=== PATIENT | male | born 1985 | race Caucasian/White ===

== ENCOUNTER 2020-08-06 13:13 | Emergency (ER) | payer OTHER, MEDICAID, SELFPAY ==
[2020-08-06 13:22] VITALS: BP 132/79; PULSE 94; RESP 18; TEMP 36.5; O2SAT 100; BMI 31.3
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
== END 2020-08-06 15:32 | disposition home or self-care (01) ==
PROVIDERS: Emergency Provider Emergency Medicine
DX: S39.012A Strain of muscle, fascia and tendon of lower back, initial encounter (principal); V43.52XA Car driver injured in collision with other type car in traffic accident, initial encounter; Y93.89 Activity, other specified; Y92.414 Local residential or business street as the place of occurrence of the external cause; Y99.9 Unspecified external cause status
CPT/HCPCS: 99283

== ENCOUNTER 2021-08-02 22:04 | Emergency (ER) | payer OTHER, MEDICAID, SELFPAY ==
--- NOTE | ~2021-08-02 | CT_ITS ---
EXAMINATION: NONCONTRAST HEAD CT NONCONTRAST MAXILLOFACIAL CT INDICATION INFORMATION: Head injury. COMPARISON: None. TECHNIQUE: Separate noncontrast CT examinations of the head and maxillofacial bones were performed. Coronal and sagittal images were created for each examination at the technologist workstation. This CT examination was performed using dose optimization techniques as appropriate, variously including the following: *Automated exposure control *Adjustment of mA and/or kV according to patient size (this includes techniques or standardized protocols for targeted exams where dose is matched to indication/reason for exam; i.e. extremities or head) *Use of iterative reconstruction technique DLP: 796 and 465 mGy-cm FINDINGS: Head: There is no evidence of acute intracranial hemorrhage or territorial infarction. No abnormal mass effect or midline shift is seen. Ornelas to white matter differentiation is well preserved. No extra-axial fluid collections are identified. No hydrocephalus. No significant volume loss. There is no abnormal attenuation within the brain parenchyma. No acute soft tissue abnormality. No calvarial fracture. The mastoid air cells are well aerated. Maxillofacial: No acute maxillofacial fractures are seen. The frontal, maxillary, ethmoid, and sphenoid sinuses are well aerated. The uncinate process is normal bilaterally. The infundibula and middle meati are patent. The nasal septum is midline. The mandibular heads are well-seated in the condylar fossa. Periapical disease within a left inferior molar (18:53). The orbits demonstrate a normal appearance bilaterally. The globes are intact, and there are no suspicious findings to suggest retrobulbar hemorrhage. Visualized portions of the cervical spine are unremarkable. CT/CT facial bones wo con IMPRESSION: No acute intracranial abnormality. No acute maxillofacial fractures.
--- NOTE | ~2021-08-02 | XR_ITS ---
EXAMINATION: XR KNEE, RIGHT CLINICAL INFORMATION: Trauma. COMPARISON: None. TECHNIQUE: Four views of the right knee. FINDINGS: No acute fractures or malalignment. No significant osteoarthritis. Small joint effusion. No unexpected radiopaque foreign bodies. XR/XR knee RT 3V IMPRESSION: Small joint effusion. Otherwise, normal examination.
[2021-08-02 22:11] VITALS: BP 121/61; PULSE 96; RESP 16; TEMP 37.1; O2SAT 100; BMI 34.4
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
[2021-08-03] MEDS: Acetaminophen 325 MG TABLET 650 MG PO (00:09)
== END 2021-08-03 00:34 | disposition home or self-care (01) ==
PROVIDERS: Emergency Provider Emergency Medicine Emergency Medical Services
DX: S09.90XA Unspecified injury of head, initial encounter (principal); S80.01XA Contusion of right knee, initial encounter; G44.309 Post-traumatic headache, unspecified, not intractable; V43.52XA Car driver injured in collision with other type car in traffic accident, initial encounter; Y93.9 Activity, unspecified; Y92.410 Unspecified street and highway as the place of occurrence of the external cause; Y99.9 Unspecified external cause status; Z79.899 Other long term (current) drug therapy
CPT/HCPCS: 70450; 70486; 73562; 99284

== ENCOUNTER 2022-09-09 14:52 | Emergency (ER) | payer OTHER, MEDICAID, SELFPAY ==
--- NOTE | ~2022-09-09 | XR_ITS ---
EXAMINATION: Cervical and lumbar spine. CLINICAL INDICATION: Pain. TECHNIQUE: Lumbar spine 4 views. Cervical spine 5 views. FINDINGS: Cervical spine: There is mild straightening of cervical lordosis. The vertebral heights, alignment and disc heights are normal. There is no visible acute fracture, dislocation or subluxation seen. The prevertebral and paravertebral soft tissues are normal. Lumbar spine: There is normal lumbar lordosis. The vertebral heights, alignment and disc heights are normal. No visible acute fracture, dislocation or subluxation seen. The paravertebral soft tissues are normal. XR/XR lumbar spine 2-3V IMPRESSION: 1. Mild straightening of cervical lordosis likely spasm. No visible acute fracture, dislocation or subluxation seen. 2. Unremarkable lumbar spine exam.
--- NOTE | ~2022-09-09 | XR_ITS ---
EXAMINATION: Cervical and lumbar spine. CLINICAL INDICATION: Pain. TECHNIQUE: Lumbar spine 4 views. Cervical spine 5 views. FINDINGS: Cervical spine: There is mild straightening of cervical lordosis. The vertebral heights, alignment and disc heights are normal. There is no visible acute fracture, dislocation or subluxation seen. The prevertebral and paravertebral soft tissues are normal. Lumbar spine: There is normal lumbar lordosis. The vertebral heights, alignment and disc heights are normal. No visible acute fracture, dislocation or subluxation seen. The paravertebral soft tissues are normal. XR/XR cervical spine 3V IMPRESSION: 1. Mild straightening of cervical lordosis likely spasm. No visible acute fracture, dislocation or subluxation seen. 2. Unremarkable lumbar spine exam.
--- NOTE | ~2022-09-09 | CT_ITS ---
EXAMINATION: CT HEAD WITHOUT CONTRAST CLINICAL INFORMATION: Presyncope. COMPARISON: Head CT dated 08/02/2021. TECHNIQUE: Contiguous axial imaging was performed from the skullbase to vertex without intravenous administration of contrast. This CT examination was performed using dose optimization techniques as appropriate, variously including the following: *Automated exposure control *Adjustment of mA and/or kV according to patient size (this includes techniques or standardized protocols for targeted exams where dose is matched to indication/reason for exam; i.e. extremities or head) *Use of iterative reconstruction technique DLP: 708 mGy-cm. FINDINGS: There is no evidence of acute intracranial hemorrhage or territorial infarction. No abnormal mass effect or midline shift is seen. Ornelas to white matter differentiation is well preserved. No extra-axial fluid collections are identified. The ventricles are normal in size. There is no abnormal attenuation within the brain parenchyma. The osseous structures and soft tissues are normal. The mastoid air cells and visualized portions of the paranasal sinuses are well aerated. CT/CT head/brain wo IV con IMPRESSION: No acute intracranial pathology.
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
[2022-09-09 15:00] VITALS: BP 149/83; PULSE 110; RESP 20; TEMP 36.7; O2SAT 98; BMI 32.9
[2022-09-09 17:58] VITALS: BP 150/88; PULSE 97; RESP 18; TEMP 36.9; O2SAT 97
[2022-09-09 18:27] VITALS: BP 112/74; PULSE 98; RESP 18; TEMP 36.9; O2SAT 96
== END 2022-09-09 18:52 | disposition home or self-care (01) ==
PROVIDERS: Emergency Provider Student in an Organized Health Care Education/Training Program
DX: S16.1XXA Strain of muscle, fascia and tendon at neck level, initial encounter (principal); V43.52XA Car driver injured in collision with other type car in traffic accident, initial encounter; Y93.89 Activity, other specified; Y92.414 Local residential or business street as the place of occurrence of the external cause; Y99.9 Unspecified external cause status
CPT/HCPCS: 70450; 72040; 72100; 99282; 99284

== ENCOUNTER 2022-10-13 22:41 | Emergency (ER) | payer MEDICAID, SELFPAY ==
[2022-10-13 23:25] VITALS: BP 115/78; PULSE 77; RESP 16; TEMP 36.9; O2SAT 98; BMI 31.2
--- NOTE | 2022-10-13 23:48 | ED.EXTPRO ---
HPI - Extremity Problem General Chief complaint: Extremity Injury, Upper Stated complaint: right hand finger injury Time Seen by Provider: 10/13/22 23:26 Source: patient Mode of arrival: ambulatory Limitations: no limitations History of Present Illness HPI Narrative: Patient is a 37-year-old male right-hand dominant who presents to emergency department for evaluation of atraumatic right finger pain; 4th digit. States he woke this morning noting pain along the palmar aspect of the 4th digit without any notable injury or precipitating event. He states as the day progressed his pain became increasingly worse. Reports that it is painful to be held in full extension or with flexion. Pain is felt at 4th PIP. Denies fevers, chills, redness, swelling, known insect bite Related Data Previous Rx's Medication Instructions Recorded cyclobenzaprine 5 mg tablet 5 mg PO TID PRN muscle spasm #14 08/06/20 tabs ibuprofen 600 mg tablet 600 mg PO Q6H PRN pain #20 tabs 08/06/20 oxycodone 5 mg capsule 5 mg PO Q6H PRN pain #10 caps 08/06/20 ibuprofen 400 mg tablet 400 mg PO Q6H PRN pain #20 tabs 08/02/21 cyclobenzaprine 5 mg tablet 5 mg PO TID PRN muscle spasm #15 09/09/22 tabs Allergies Allergy/AdvReac Type Severity Reaction Status Date / Time iodine [IODINE] Allergy Severe Anaphylaxis Verified 09/10/22 14:35 seafood Allergy Severe Anaphylaxis Verified 09/10/22 14:35 Review of Systems Review of Systems: Pertinent positives and negatives as per HPI Yes all other systems are reviewed and are negative [facility] Past Medical History Attestation statement: The following information was validated with the patient. Source: old records reviewed Social History Social History Advance Directives: No Advance Directives Information Provided: No Physical Exam Vital Signs: Vital Signs: Last Vital Signs Temp 98.5 F 10/13/22 23:25 Pulse 77 10/13/22 23:25 Resp 16 10/13/22 23:25 BP 115/78 10/13/22 23:25 Pulse Ox 98 10/13/22 23:25 BMI result Body Mass Index 31.2 Appearance: Alert.?Oriented to person, place and time. No acute distress.?Normal affect. Neck: Normal inspection.? Neck supple.?? CVS: Heart sounds normal. Normal heart rate and rhythm.? Pulses normal.?? Skin: Skin warm and dry.? Normal skin color.? Normal skin turgor.?? Extremities: No extremity edema.? No calf ttp. 2+ radial pulse bilaterally. Right hand without overt swelling, deformity, erythema, warmth. Palpable tenderness along the right 4th PIP, held in partial flexion Neuro: Moves all extremities spontaneously. Sensation intact bilaterally. No focal neuro deficits. Ambulates with normal steady gait. Medical Decision Making Medical Decision Making MDM Narrative: Patient is a 37-year-old male who presents emergency department for evaluation of atraumatic right finger pain as per HPI. Examination is overall benign, mild point tenderness upon palpation, decreased AROM. Examination does not appear consistent septic joint. It is he is nontoxic in appearance, afebrile. No overt deformity or known precipitating injury. XR imaging reveals no acute fracture or dislocation. Reviewed these findings with patient. At this time feel that patient stable for discharge home, discussed rest, ice, use of finger splint, acetaminophen/ibuprofen for pain. Reviewed worrisome signs and symptoms that would warrant re-evaluation in the emergency department. All questions answered. Stable for discharge. Differential Diagnosis Differential Diagnoses: The differential diagnosis associated with the presentation includes (Fracture, dislocation, finger sprain, septic joint, cellulitis, ) Independent Interpretation I performed an independent interpretation of an: Plain X-Ray (I personally interpreted x-ray of right hand and agree with radiologist impression, no acute fracture dislocation) Radiology Impression Discussion of test interpretation with radiology: I have reviewed the radiologist's reading. Radiologist Impression: XR/XR hand RT 2V IMPRESSION: Normal right hand. Discharge Plan Discharge Clinical Impression: Finger sprain Patient Disposition: Home, Self-Care Instructions: Finger Sprain (ED) Additional Instructions: Your x-ray today does not show anything broken or dislocated, this is very reassuring. You can take ibuprofen 200 mg, 3 tablets (600mg) every 6-8 hours as needed for pain, in addition to Tylenol 500 mg, 2 tablets (1,000mg) every 4-6 hours as needed for pain, but not to exceed 3 doses daily (3,000mg).? Use the finger splint as provided to aid in comfort. Follow-up with your primary care provider. If you develop fevers, chills, severe or worsening pain, redness to the finger/hand, swelling, rash or lesions, you should have this re-evaluated. Prescriptions: No Action oxycodone 5 mg capsule 5 mg PO Q6H PRN (Reason: pain) Qty: 10 0RF Rx Instructions: Narcotic, no driving for 6 hours after taking this medication cyclobenzaprine 5 mg tablet 5 mg PO TID PRN (Reason: muscle spasm) Qty: 14 0RF Rx Instructions: This medication can cause drowsiness, no driving for 8 hours after taking ibuprofen 600 mg tablet 600 mg PO Q6H PRN (Reason: pain) Qty: 20 0RF ibuprofen 400 mg tablet 400 mg PO Q6H PRN (Reason: pain) Qty: 20 0RF cyclobenzaprine 5 mg tablet 5 mg PO TID PRN (Reason: muscle spasm) Qty: 15 0RF Referrals: [facility] [Primary Care Provider] -
== END 2022-10-14 00:53 | disposition home or self-care (01) ==
PROVIDERS: Emergency Provider Internal Medicine
DX: M79.644 Pain in right finger(s) (principal); S63.619A Unspecified sprain of unspecified finger, initial encounter; X58.XXXA Exposure to other specified factors, initial encounter; Y93.9 Activity, unspecified; Y92.9 Unspecified place or not applicable; Y99.9 Unspecified external cause status
CPT/HCPCS: 73120; 99282; 99283

== ENCOUNTER 2022-11-29 17:34 | Emergency (ER) | payer MEDICAID, SELFPAY ==
--- NOTE | ~2022-11-29 | XR_ITS ---
EXAMINATION: XR CHEST CLINICAL INFORMATION: Suspected rib fracture. COMPARISON: Chest radiograph done on 10/09/2018. TECHNIQUE: 2 views of the chest were obtained. FINDINGS: No significant abnormality is noted involving the heart, lungs, mediastinum, bony thorax or soft tissues. XR/XR chest 2V IMPRESSION: Unremarkable examination. No definite radiographic evidence of displaced rib fracture.
[2022-11-29 18:18] VITALS: BP 115/71; PULSE 92; RESP 18; TEMP 37.2; O2SAT 97; BMI 31.3
--- NOTE | 2022-11-29 18:21 | ECG_ITS ---
Test Reason : cp Blood Pressure : / mmHG Vent. Rate : 083 BPM Atrial Rate : 083 BPM P-R Int : 146 ms QRS Dur : 118 ms QT Int : 372 ms P-R-T Axes : 029 011 023 degrees QTc Int : 437 ms Normal sinus rhythm Non-specific intra-ventricular conduction delay Borderline ECG When compared with ECG of 09-OCT-2018 03:41, No significant change was found Referred By: Generic ED Physician Electronically Signed By:GISEL WOLFF
--- NOTE | 2022-11-29 18:27 | ED_ITS ---
HPI - General Adult General Chief complaint: Abdominal Pain Stated complaint: Left abd pain Time Seen by Provider: 11/29/22 21:09 Source: patient Mode of arrival: ambulatory Limitations: no limitations History of Present Illness HPI narrative: Patient smoker been coughing mostly dry cough earlier after coughing noticed pain in the left upper abdomen no chest pain or shortness of breath Related Data Previous Rx's Medication Instructions Recorded cyclobenzaprine 5 mg tablet 5 mg PO TID PRN muscle spasm #14 08/06/20 tabs ibuprofen 600 mg tablet 600 mg PO Q6H PRN pain #20 tabs 08/06/20 oxycodone 5 mg capsule 5 mg PO Q6H PRN pain #10 caps 08/06/20 ibuprofen 400 mg tablet 400 mg PO Q6H PRN pain #20 tabs 08/02/21 cyclobenzaprine 5 mg tablet 5 mg PO TID PRN muscle spasm #15 09/09/22 tabs albuterol sulfate 90 mcg/actuation 2 puff inhalation Q4-6H PRN 11/29/22 aerosol inhaler (ProAir HFA) shortness of breath or wheezing #8.5 grams benzonatate 200 mg capsule 200 mg PO TID PRN cough #30 caps 11/29/22 ibuprofen 600 mg tablet 600 mg PO Q6H PRN fever or pain 11/29/22 #30 tabs Allergies Allergy/AdvReac Type Severity Reaction Status Date / Time iodine [IODINE] Allergy Severe Anaphylaxis Verified 09/10/22 14:35 seafood Allergy Severe Anaphylaxis Verified 09/10/22 14:35 Review of Systems Review of Systems: Yes all other systems are reviewed and are negative [facility] Social History Social History Alcohol intake: never Smoked in Last 30 Days: Yes Use of substances other than those prescribed or required for medical reasons: Yes Substance Use Type: Marijuana Substance Use Frequency: Chronic Longstanding Last Used Substance: Just Prior to Admission Advance Directives: No Advance Directives Information Provided: Yes Physical Exam ED Vital Signs: Vital Signs - 24 hr 11/29/22 18:18 Temperature 98.9 F Pulse Rate 92 Respiratory Rate 18 Blood Pressure 115/71 Pulse Oximetry 97 Oxygen Delivery Method Room Air BMI result Body Mass Index 31.3 Appearance: Alert. Oriented X3. No acute distress. Eyes: PERRLA, No Nystagmus ENT: Pharynx normal. Oral Mucosa moist Neck: Normal inspection. Neck supple. CVS: Normal heart rate and rhythm. Pulses normal. Respiratory: No respiratory distress. Equal air entry bilateral, no wheezing/rales/rhonchi Abdomen: Soft slight tenderness left upper abdomen no hernia palpable Bowel sounds are present, no mass palpable, no CVA tenderness Skin: Skin warm and dry. Normal skin color. Normal skin turgor. Extremities: No lower extremity edema. No calf tenderness Neuro: Oriented X 3. No motor deficit. No sensory deficit.No cerebellar signs , cranial nerves II-XII intact Course Course Course Narrative: RmE: 37 yold male presents to the ED for left upper abdominal pain that occurred after coughing hard. Upper abdominal pain that is worse on movement. labs, EGK orderd Medications Administered Discontinued Medications Generic Name Dose Route Start Last Admin Trade Name Freq PRN Reason Stop Dose Admin Benzonatate 200 mg 11/29/22 21:30 11/29/22 21:37 Benzonatate 100 Mg Capsule PO 11/29/22 21:31 200 mg ONCE ONE Administration Ibuprofen 600 mg 11/29/22 21:30 11/29/22 21:37 Ibuprofen 600 Mg Tablet PO 11/29/22 21:31 600 mg ONCE ONE Administration Medical Decision Making Medical Decision Making [facility] Narrative: Patient with muscle strain secondary to cough will discharge patient home on albuterol inhaler and cough medicine advised not smoke Lab Data [facility] Lab Attestation statement: I reviewed the patient's lab results. 11/29/22 18:39 11/29/22 18:39 Labs: Lab Results 11/29/22 11/29/22 11/29/22 Range/Units 18:39 18:39 18:39 WBC 10.6 (4.8-10.8) X10*3/uL RBC 5.12 (4.60-5.80) X10*6/uL Hgb 14.2 (14.0-18.0) g/dl Hct 43.5 (42.0-52.0) % MCV 85.0 (80.0-98.0) fL MCH 27.7 (27.0-33.0) pg MCHC 32.6 (31.0-36.0) g/dl RDW 12.5 (11.0-16.0) % Plt Count 223 (160-400) X10*3/uL MPV 9.6 (9.4-12.4) fL Immature Gran % (Auto) 0.3 (0.0-0.4) % Neut % (Auto) 59.8 (45-73) % Lymph % (Auto) 30.9 (20-40) % [place] % (Auto) 7.3 (2-11) % Eos % (Auto) 1.3 (0-4) % Baso % (Auto) 0.4 (0-2) % Lymph # (Auto) 3.3 (1.2-4.9) X10*3/uL [place] # (Auto) 0.8 (0.1-1.2) X10*3/uL Eos # (Auto) 0.1 (0.0-0.4) X10*3/uL Baso # (Auto) 0.0 (0.0-0.2) X10*3/uL Abs Immat Gran (auto) 0.03 (0.00-0.03) X10*3/uL Absolute Neuts (auto) 6.4 (2.0-8.3) x10*3/uL Absolute Nucleated RBC 0.000 (0.0-0.012) X10*3/uL Nucleated RBC % (auto) 0.0 (0.0-0.2) /100WBC Sodium 140 (135-145) mmol/L Potassium 3.6 (3.3-5.1) mmol/L Chloride 107 (96-108) mmol/L Carbon Dioxide 24 (22-29) mmol/L Anion Gap 13 (12-20) BUN 10 (9-16) mg/dL Creatinine 0.86 (0.5-1.4) mg/dL Estim Creat Clear Calc 128.7 Estimated GFR > 60 Random Glucose 135 H (60-115) mg/dL Calcium 9.8 (8.4-10.2) mg/dL Total Bilirubin 0.4 (0.0-1.0) mg/dL Direct Bilirubin 0.2 (0.0-0.5) mg/dL AST 29 (5-37) U/L ALT 24 (0-40) U/L Alkaline Phosphatase 63 (39-117) U/L Troponin I High Sens < 2.7 (<3.5-35.0) ng/L Total Protein 7.1 (6.5-8.0) g/dL Albumin 4.2 (3.5-5.0) g/dL Lipase 39 (8-78) U/L Discharge Plan Discharge Clinical Impression: Abdominal muscle strain Patient Disposition: Home, Self-Care Instructions: Muscle Strain (DC) Additional Instructions: Take ibuprofen for pain Tessalon for cough Use albuterol inhaler 2 puffs every 4-6 hours as needed Stop smoking Prescriptions: New benzonatate 200 mg capsule 200 mg PO TID PRN (Reason: cough) Qty: 30 0RF albuterol sulfate [ProAir HFA] 90 mcg/actuation HFA aerosol inhaler 2 puff inhalation Q4-6H PRN (Reason: shortness of breath or wheezing) Qty: 8.5 0RF ibuprofen 600 mg tablet 600 mg PO Q6H PRN (Reason: fever or pain) Qty: 30 0RF No Action oxycodone 5 mg capsule 5 mg PO Q6H PRN (Reason: pain) Qty: 10 0RF Rx Instructions: Narcotic, no driving for 6 hours after taking this medication cyclobenzaprine 5 mg tablet 5 mg PO TID PRN (Reason: muscle spasm) Qty: 14 0RF Rx Instructions: This medication can cause drowsiness, no driving for 8 hours after taking ibuprofen 600 mg tablet 600 mg PO Q6H PRN (Reason: pain) Qty: 20 0RF ibuprofen 400 mg tablet 400 mg PO Q6H PRN (Reason: pain) Qty: 20 0RF cyclobenzaprine 5 mg tablet 5 mg PO TID PRN (Reason: muscle spasm) Qty: 15 0RF Stand Alone Forms: Work/School Release Interventions: ED Discharge Assessment Last Done: 11/29/22 21:49 Discharge Date/Time: 11/29/22 21:49
[2022-11-29 18:44] LABS: MANUAL DIFF FLAG NO
[2022-11-29 18:45] LABS: Basophils Percent Auto 0.4 % (0-2); Eosinophils Absolute Auto 0.1 X10*3/uL (0.0-0.4); Eosinophils Percent Auto 1.3 % (0-4); Hematocrit 43.5 % (42.0-52.0); Hemoglobin 14.2 g/dl (14.0-18.0); Imm Gran Abs Auto 0.03 X10*3/uL (0.00-0.03); Imm Gran Pct Auto 0.3 % (0.0-0.4); Lymphocytes Absolute Auto 3.3 X10*3/uL (1.2-4.9); Lymphocytes Percent Auto 30.9 % (20-40); Mean Corpuscular HGB Conc 32.6 g/dl (31.0-36.0); Mean Corpuscular Hemoglobin 27.7 pg (27.0-33.0); Mean Platelet Volume 9.6 fL (9.4-12.4); Monocytes Absolute Auto 0.8 X10*3/uL (0.1-1.2); Monocytes Percent Auto 7.3 % (2-11); Neutrophils Absolute Auto 6.4 x10*3/uL (2.0-8.3); Neutrophils Percent Auto 59.8 % (45-73); Platelet Count 223 X10*3/uL (160-400); Red Blood Count 5.12 X10*6/uL (4.60-5.80); Red Cell Distribution Width 12.5 % (11.0-16.0); White Blood Count 10.6 X10*3/uL (4.8-10.8)
[2022-11-29 19:01] LABS: Alanine Aminotransferase 24 U/L (0-40); Albumin Level 4.2 g/dL (3.5-5.0); Alkaline Phosphatase 63 U/L (39-117); Anion Gap 13 (12-20); Aspartate Amino Transferase 29 U/L (5-37); Bilirubin Direct 0.2 mg/dL (0.0-0.5); Bilirubin Total 0.4 mg/dL (0.0-1.0); Blood Urea Nitrogen 10 mg/dL (9-16); Calcium 9.8 mg/dL (8.4-10.2); Carbon Dioxide 24 mmol/L (22-29); Chloride 107 mmol/L (96-108); Creatinine Clr Calc Pharmacy 128.7; Estimated Glomerular Filt Rate > 60; Glucose Random 135 mg/dL (60-115); Lipase 39 U/L (8-78); Potassium 3.6 mmol/L (3.3-5.1); Sodium 140 mmol/L (135-145); Total Protein 7.1 g/dL (6.5-8.0)
[2022-11-29 19:13] LABS: Troponin-I High Sensitivity < 2.7 ng/L (<3.5-35.0)
[2022-11-29] MEDS: Benzonatate 100 MG CAPSULE 200 MG PO (21:37)
[2022-11-29] MEDS: Ibuprofen 600 MG TABLET PO (21:37)
== END 2022-11-29 21:49 | disposition home or self-care (01) ==
PROVIDERS: Emergency Provider Internal Medicine
DX: S39.011A Strain of muscle, fascia and tendon of abdomen, initial encounter (principal); R10.13 Epigastric pain; R10.12 Left upper quadrant pain; R05.9 Cough, unspecified; R07.89 Other chest pain; F12.90 Cannabis use, unspecified, uncomplicated; X58.XXXA Exposure to other specified factors, initial encounter; Y93.9 Activity, unspecified; Y92.9 Unspecified place or not applicable; Y99.9 Unspecified external cause status; Z79.899 Other long term (current) drug therapy
CPT/HCPCS: 36415; 71046; 80053; 82248; 83690; 84484; 85025; 93005; 99284; 99285

== ENCOUNTER 2023-12-06 08:19 | Emergency (ER) | payer MEDICAID, SELFPAY ==
[2023-12-06 08:45] VITALS: BP 140/97; PULSE 86; RESP 18; TEMP 36.8; O2SAT 96; BMI 35.3
--- NOTE | 2023-12-06 09:28 | ED.EYEPROB ---
HPI - Eye Problem General Chief complaint: Eye Problems Stated complaint: r eye issue Time Seen by Provider: 12/06/23 09:28 Source: patient Mode of arrival: ambulatory Limitations: no limitations History of Present Illness ED Provider: freedom SILVEIRA Narrative: Patient is a 38-year-old male presenting to the emergency department with complaint of redness and swelling to right lower eyelid for the past 2 days. Reports he has had 3 styes in the past 2 weeks. Yesterday had drainage which was causing impairment to his vision but was able to be cleared with blinking. Denies pain with eye movements. Denies changes in vision. Denies contact lens use. He used erythromycin ointment that his mother gave him which did cause slight improvement in symptoms. chief complaint: eye redness Onset (ago): day(s) Duration: constant Location: right eye Eye Symptoms: redness and discharge Mechanism: none Associated symptoms: none Treatments Prior to Arrival: other Related Data Previous Rx's ?Medication ?Instructions ?Recorded cyclobenzaprine 5 mg tablet 5 mg PO TID PRN muscle spasm #14 08/06/20 tabs ibuprofen 600 mg tablet 600 mg PO Q6H PRN pain #20 tabs 08/06/20 oxycodone 5 mg capsule 5 mg PO Q6H PRN pain #10 caps 08/06/20 ibuprofen 400 mg tablet 400 mg PO Q6H PRN pain #20 tabs 08/02/21 cyclobenzaprine 5 mg tablet 5 mg PO TID PRN muscle spasm #15 09/09/22 tabs albuterol sulfate 90 mcg/actuation 2 puff inhalation Q4-6H PRN 11/29/22 aerosol inhaler (ProAir HFA) shortness of breath or wheezing #8.5 grams benzonatate 200 mg capsule 200 mg PO TID PRN cough #30 caps 11/29/22 ibuprofen 600 mg tablet 600 mg PO Q6H PRN fever or pain 11/29/22 #30 tabs ofloxacin 0.3 % eye drops 1 drp ophthalmic (eye) QID 5 days 12/06/23 #5 mL Allergies Allergy/AdvReac Type Severity Reaction Status Date / Time iodine [IODINE] Allergy Severe Anaphylaxis Verified 12/06/23 08:47 seafood Allergy Severe Anaphylaxis Verified 12/06/23 08:47 Review of Systems Review of Systems: As per HPI. Yes all other systems are reviewed and are negative Constitutional: Constitutional: Reports as per HPI [facility] Social History Social History Alcohol intake: never Substance Use Type: Marijuana Do you have a plan to hurt others: No Plan Physical Exam Vital Signs: Vital Signs: Last Vital Signs Temp 98.3 F 12/06/23 08:45 Pulse 86 12/06/23 08:45 Resp 18 12/06/23 08:45 BP 140/97 H 12/06/23 08:45 Pulse Ox 96 12/06/23 08:45 O2 Del Method Room Air 12/06/23 08:45 BMI result Body Mass Index 35.3 Vital signs have been reviewed and appear to be correct. Blood pressure normal. Heart rate normal. Respiratory rate normal. Temperature normal. Oxygen saturation normal. Const: General: cooperative, healthy appearing and no acute distress Orientation/consciousness: oriented to person, oriented to place, oriented to time and patient oriented x3 Limitations: no limitations HEENT: Head: Yes normocephalic and Yes atraumatic Ears: external ears normal General nose exam: Normal external nose present Face and sinus: Yes face symmetric Mouth: oropharynx normal and moist mucous membranes Throat: Yes uvula midline Eyes: Periorbital: periorbital findings normal Eyelids: Yes eyelid abnormality (erythema, swelling, hordeolum with white/yellow discharge to rt lower lid) Conjunctivae: conjunctivae normal Sclerae: sclerae normal Corneas: corneas normal Pupils: Equal, round and reactive pupils present EOM: EOMs intact bilaterally (no pain with EOMs) Neck: Neck: Yes normal visual inspection and Yes supple Resp: Effort & Inspection: normal respiratory effort and able to speak in complete sentences Auscultation: clear to auscultation bilaterally Cardio: Rate: regular rate Rhythm: regular rhythm Heart sounds: S1 normal heart sound present and S2 normal heart sound present GI: Palpation (GI): Soft to palpation and nontender Auscultation: normoactive bowel sounds : General: Yes no CVA tenderness Back/Spine/Pelvis: Back: no CVA tenderness Skin: General skin exam: elasticity normal and turgor normal Neuro: General: oriented to person, oriented to place, oriented to time, patient oriented x3, moves all extremities, no focal motor deficits and CN's II-XI intact bilaterally Cranial nerves: Yes Equal, round and reactive pupils present Cognition (Neuro): normal cognition Extrem: General: Yes full ROM, Yes no pedal edema and Yes no calf tenderness Psych: Mental Status: mental status grossly normal Affect: normal affect Thought process: Normal thought process present Medical Decision Making Medical Decision Making [facility] Narrative: Patient is a 38-year-old male presenting to the emergency department with complaint of redness and swelling to right lower eyelid for the past 2 days. On exam patient is awake, A+Ox3, VS WNL, afebrile, normal neurological exam without focal deficits, physical exam findings as above. Given reported symptoms and physical exam findings, initial differential includes hordeoloum, chalazion, conjunctivitis, blepharitis. Do not suspect preorbital or orbital cellulitis. Given that patient had minimal improvement with erythromycin and this is his third hordeolum in two weeks, will treat with ofloxacin drops. Advised patient to apply warm compresses throughout the day. Also discussed gently washing the skin around his eyes with baby shampoo to prevent future infections. Will refer to Ophthalmology for follow-up. Return precautions discussed at bedside. Patient verbalized understanding of and agreement with plan. Differential Diagnosis Differential Diagnoses: The differential diagnosis associated with the presentation includes As per MDM. External Record Review External record reviewed: Inpatient record, Office record and Outpatient record Prescription Management I considered prescription management with: Antibiotic Discharge Plan Discharge Clinical Impression: Hordeolum internum of right lower eyelid Patient Disposition: Home, Self-Care Instructions: Hal (ED) Additional Instructions: You were evaluated in the emergency department today for right eye pain and swelling which is due to a hordeolum (stye). We recommend that you apply warm compresses to the area several times daily. You are being prescribed antibiotic eyedrops, use these as prescribed. You can also gently wash the skin around your eyes with baby shampoo to help prevent future episodes. If you develop increasing redness, swelling, drainage, fevers, or pain with eye movements return to the ED. 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 Prescriptions: New ofloxacin 0.3 % drops 1 drp ophthalmic (eye) QID 5 Days Qty: 5 0RF Rx Instructions: Right eye No Action oxycodone 5 mg capsule 5 mg PO Q6H PRN (Reason: pain) Qty: 10 0RF Rx Instructions: Narcotic, no driving for 6 hours after taking this medication cyclobenzaprine 5 mg tablet 5 mg PO TID PRN (Reason: muscle spasm) Qty: 14 0RF Rx Instructions: This medication can cause drowsiness, no driving for 8 hours after taking ibuprofen 600 mg tablet 600 mg PO Q6H PRN (Reason: pain) Qty: 20 0RF ibuprofen 400 mg tablet 400 mg PO Q6H PRN (Reason: pain) Qty: 20 0RF cyclobenzaprine 5 mg tablet 5 mg PO TID PRN (Reason: muscle spasm) Qty: 15 0RF benzonatate 200 mg capsule 200 mg PO TID PRN (Reason: cough) Qty: 30 0RF albuterol sulfate [ProAir HFA] 90 mcg/actuation HFA aerosol inhaler 2 puff inhalation Q4-6H PRN (Reason: shortness of breath or wheezing) Qty: 8.5 0RF ibuprofen 600 mg tablet 600 mg PO Q6H PRN (Reason: fever or pain) Qty: 30 0RF Referrals: Silas Ontiveros [Physician] - Print Language: Indonesian
--- OUTSIDE RECORDS SUMMARY | 2023-12-06 09:33 | XMS_ITS | Patient Health Record ---
Author Organization [facility] Address [address], [place] [id number] Support Name Relationship Address Phone Saw Bolanos Guarantor Unknown [phone] REASON FOR REFERRAL No Information SOCIAL HISTORY Sex Assigned At : Social History Observation Description Sex Assigned At Unknown PLAN OF TREATMENT No Information
[2023-12-06 09:56] VITALS: BP 140/97; PULSE 86; RESP 18; TEMP 36.6; O2SAT 96
== END 2023-12-06 09:57 | disposition home or self-care (01) ==
PROVIDERS: Emergency Provider Emergency Medicine
DX: H00.012 Hordeolum externum right lower eyelid (principal); Z79.899 Other long term (current) drug therapy
CPT/HCPCS: 99282; 99283

== ENCOUNTER 2025-02-05 17:52 | Inpatient (IN) | payer OTHER, SELFPAY ==
--- NOTE | ~2025-02-05 | CT_ITS ---
CLINICAL HISTORY: abscess evaluation, swelling CT soft tissue neck with contrast Comparison: None provided Findings: Symmetric prominent soft tissue in the nasopharynx which may represent lymphoid hyperplasia. No loculated fluid collection or adjacent inflammatory stranding. No abscess identified in the neck. No soft tissue air/gas. Parotid glands and submandibular glands are unremarkable. Thyroid within normal limits. The epiglottis measures up to 5 mm in thickness which is the upper limit of normal. Prevertebral soft tissues within normal limits. 1 cm rounded fat attenuation lesion on the left lateral to the internal jugular vein at the level of the epiglottis may represent small lipoma. Musculature is within normal limits and symmetric. Visualized intracranial structures within normal limits. Visualized paranasal sinuses are clear. Lung apices are clear. Right azygous lobe. No acute fracture. IMPRESSION: 1. No abscess or inflammatory changes in the neck. 2. Mild symmetric prominent soft tissue in the nasopharynx may represent lymphoid hyperplasia. 3. Epiglottis measures 5 mm in thickness which is at the upper limit of normal. This document has been electronically signed by: Margaret Anthony MD on 02/05/2025 19:38:48
--- NOTE | 2025-02-05 18:15 | ED_ITS ---
HPI - General Adult General Chief complaint: Dental/Oral Stated complaint: swollen throat, unable to speak Time Seen by Provider: 02/05/25 19:23 Source: patient Mode of arrival: ambulatory Limitations: no limitations History of Present Illness ED Provider: Dr. Martinez [facility] narrative: This is a 39-year-old male presented hospital today for 4 days of sore throat. He has difficulty swallowing. And throat pain. Patient does have signs of trismus. Denies any fever. Patient presents to the ER for further evaluation due to his ongoing symptoms. Related Data Previous Rx's ?Medication ?Instructions ?Recorded cyclobenzaprine 5 mg tablet 5 mg PO TID PRN muscle spa sm #14 08/06/20 tabs ibuprofen 600 mg tablet 600 mg PO Q6H PRN pain #20 t abs 08/06/20 oxycodone 5 mg capsule 5 mg PO Q6H PRN pain #10 cap s 08/06/20 ibuprofen 400 mg tablet 400 mg PO Q6H PRN pain #20 t abs 08/02/21 cyclobenzaprine 5 mg tablet 5 mg PO TID PRN muscle spa sm #15 09/09/22 tabs albuterol sulfate 90 mcg/actuation 2 puff inhalation Q 4-6H PRN 11/29/22 aerosol inhaler (ProAir HFA) shortness of breath or wh eezing #8.5 grams benzonatate 200 mg capsule 200 mg PO TID PRN cough #30 caps 11/29/22 ibuprofen 600 mg tablet 600 mg PO Q6H PRN fever or p ain 11/29/22 #30 tabs ofloxacin 0.3 % eye drops 1 drp ophthalmic (eye) QID 5 days 12/06/23 #5 mL Allergies Allergy/AdvReac Type Severity Reaction Status Date / Time iodine (IODINE) Allergy Severe Anaphylaxis Verified 02/05/25 18:19 seafood Allergy Severe Anaphylaxis Verified 02/05/25 18:19 Review of Systems 2 Review of Systems: Pertinent review of systems as mentioned in [facility]. All other system otherwise negative. [facility] Past Medical History [facility] Narrative: Medical history as mentioned in [facility] Social History Social History Alcohol intake: never Smoked in Last 30 Days: Yes Use of substances other than those prescribed or required for medical reasons: Yes Substance Use Type: Marijuana Advance Directives: No Advance Directives Information Provided: No Physical Exam ED Exam Exam: General: Pleasant, no distress, interacting appropriately Head: Normacephalic, atraumatic ENT: oral mucosa moist, no exudate, there is some trismus on exam due to pain in his neck on opening, patient has no sign of stridor Cardiovascular: Tachycardic rate, regular rhythm, no murmurs, rubbing, gallops Respiratory: CTAB, no wheeze, rales, rhonchi Neurological: Awake and alert, no facial droop noted Skin: Warm and dry Psychiatric: Appropriate mood and thoughts Vital Signs: Vital Signs - 24 hr 02/05/25 18:16 02/05/25 19:30 02/05/25 20:02 Temperature 98.1 F 98.7 F 98.7 F Pulse Rate 107 H 99 105 H Respiratory Rate 18 19 17 Blood Pressure 155/90 H 138/93 H 138/95 H Pulse Oximetry 94 97 97 Oxygen Delivery Method Room Air Room Air Room Air BMI result Body Mass Index 30.7 Course Course Course Narrative: Rapid medical examination performed in triage by Maryellen Unger PA-C. Patient is a 39 year old assigned male at presenting to the emergency department with sore throat / throat swelling and pain with jaw opening / swallowing. Detailed physical exam and review of systems are deferred to the undergraduate internship. Labs, imaging, and swabs ordered. 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 Medications Administered Generic Name Dose Route Start Last Admin Trade Name Freq PRN Reason Stop Dose Admin Sodium Chloride 1,000 mls @ 999 mls/hr 02/05/25 20:15 02/05/25 20:23 Ns IV 02/05/25 21:15 999 mls/hr .Q1H1M MAGGY Administration Discontinued Medications Generic Name Dose Route Start Last Admin Trade Name Freq PRN Reason Stop Dose Admin Acetaminophen 975 mg 02/05/25 19:53 02/05/25 19:59 Acetaminophen 325 Mg Tablet PO 02/05/25 19:54 975 mg ONCE ONE Administration Dexamethasone Sodium Phosphate 6 mg 02/05/25 19:41 02/05/25 19:50 Dexamethasone Sod Phosphate 4 Mg/Ml Vial IVPUSH 02/05/25 19:42 6 mg ONCE ONE Administration Ceftriaxone Sodium 1 gm/ 50 mls @ 100 mls/hr 02/05/25 19:07 02/05/25 19:58 Sodium Chloride IV 02/05/25 19:36 Infused ONCE ONE Infusion Ceftriaxone Sodium 1 gm/ 50 mls @ 100 mls/hr 02/05/25 20:12 02/05/25 20:23 Sodium Chloride IV 02/05/25 20:41 100 mls/hr ONCE ONE Administration Iohexol 60 ml 02/05/25 18:45 02/05/25 18:46 Iohexol 350 Mg/Ml 100 Ml Infus..Btl IV 02/05/25 18:46 60 ml ONCE ONE Administration Medical Decision Making Medical Decision Making [facility] Narrative: 39-year-old male presented hospital today for evaluation of sore throat for the past 4 days. Given patient's signs of trismus and concern of pharyngitis and white count and tachycardia. Patient does meet signs of possible sepsis. Patient did test positive for strep. IV ceftriaxone will be given. We will plan to give patient IV Decadron to as well. We will plan to start patient on IV fluid. Discussed with the patient that recommended admission to the hospital at this time. The patient is agreeable to this. CT imaging did not show any signs of abscess. Did show signs of epiglottis that is on the upper limit of normal. He does not appear to be tachypneic or have any signs of stridor on exam. However given these findings the patient we will benefit from additional observation IV antibiotics. We will plan to admit the patient to the hospital. He does have a white count of 14. Lactic acid is normal. Differential Diagnosis Differential Diagnoses: The differential diagnosis associated with the presentation includes Epiglottitis, strep pharyngitis, tonsillitis, peritonsillar abscess Admission/Observation Consideration of admission/observation: Escalation of care including admission/observation considered Lab Data [facility] Lab Attestation statement: I reviewed the patient's lab results. 02/05/25 18:37 02/05/25 18:37 Labs: Lab Results 02/05/25 02/05/25 Range/Units 18:37 19:22 WBC 14.7 H (4.8-10.8) X10*3/uL RBC 5.05 (4.60-5.80) X10*6/uL Hgb 14.1 (14.0-18.0) g/dl Hct 42.9 (42.0-52.0) % MCV 85.0 (80.0-98.0) fL MCH 27.9 (27.0-33.0) pg MCHC 32.9 (31.0-36.0) g/dl RDW 12.6 (11.0-16.0) % Plt Count 221 (160-400) X10*3/uL MPV 9.4 (9.4-12.4) fL Immature Gran % (Auto) 0.5 H (0.0-0.4) % Neut % (Auto) 73.9 H (45-73) % Lymph % (Auto) 16.1 L (20-40) % [place] % (Auto) 8.8 (2-11) % Eos % (Auto) 0.5 (0-4) % Baso % (Auto) 0.2 (0-2) % Lymph # (Auto) 2.4 (1.2-4.9) X10*3/uL [place] # (Auto) 1.3 H (0.1-1.2) X10*3/uL Eos # (Auto) 0.1 (0.0-0.4) X10*3/uL Baso # (Auto) 0.0 (0.0-0.2) X10*3/uL Abs Immat Gran (auto) 0.08 H (0.00-0.03) X10*3/uL Absolute Neuts (auto) 10.9 H (2.0-8.3) x10*3/uL Absolute Nucleated RBC 0.000 (0.0-0.012) X10*3/uL Nucleated RBC % (auto) 0.0 (0.0-0.2) /100WBC ESR 24 H (0-15) MM/HR Sodium 142 (135-145) mmol/L Potassium 3.6 (3.3-5.1) mmol/L Chloride 107 (96-108) mmol/L Carbon Dioxide 25 (22-29) mmol/L Anion Gap 14 (12-20) BUN 10 (9-16) mg/dL Creatinine 0.82 (0.5-1.4) mg/dL Estim Creat Clear Calc 139.7 Estimated GFR > 60 Random Glucose 106 (60-115) mg/dL Lactic Acid 0.9 (0.5-2.0) mmol/L Calcium 9.3 (8.4-10.2) mg/dL Total Bilirubin 0.8 (0.0-1.0) mg/dL AST 30 (5-37) U/L ALT 21 (0-40) U/L Alkaline Phosphatase 64 (39-117) U/L C-Reactive Protein 5.72 H (< or = 0.50) mg/dL Total Protein 7.6 (6.5-8.0) g/dL Albumin 4.7 (3.5-5.0) g/dL Hold Red Top See Note COVID-19 (LIZZ) Negative (Negative) COVID-19 Clin Com See Note Monoscreen Negative (Negative) Influenza Type A (ABDI) Negative (Negative) Influenza Type B (ABDI) Negative (Negative) Influenza A & B Note See Note S. pyogenes GrpA ABDI Positive A (Negative) Independent Interpretation I performed an independent interpretation of an: CT Scan Radiology Impression Discussion of test interpretation with radiology: I have reviewed the radiologist's reading. Critical Care Time Critical Care Time Critical Care Time: Yes Total Critical Care Time: 36 Attestation: Time is exclusive of separately billable procedures. Time includes: direct patient care, patient reassessment, coordination of patient care, interpretation of data (laboratory data, pulse oximetry, arterial blood gases and chest xrays), review of patient's medical records, medical consultation and documentation of patient care. Procedures excluded from critical care time: central intravenous line placement and electrocardiography. Discharge Plan Discharge Clinical Impression: Acute streptococcal pharyngitis Sepsis Qualifiers: Sepsis type: sepsis due to unspecified organism Sepsis acute organ dysfunction status: without acute organ dysfunction Qualified Code(s): A41.9 - Sepsis, unspecified organism Patient Disposition: Admitted As Inpatient Print Language: Belarusian
[2025-02-05 18:16] VITALS: BP 155/90; PULSE 107; RESP 18; TEMP 36.7; O2SAT 94; BMI 30.7
[2025-02-05 18:46] LABS: MANUAL DIFF FLAG NO
[2025-02-05] MEDS: iohexoL 350 MG/ML 100 ML INFUS..BTL 60 ML IV (18:46)
[2025-02-05 18:48] LABS: Hematocrit 42.9 % (42.0-52.0); Hemoglobin 14.1 g/dl (14.0-18.0); Imm Gran Abs Auto 0.08 X10*3/uL (0.00-0.03); Imm Gran Pct Auto 0.5 % (0.0-0.4); Lymphocytes Absolute Auto 2.4 X10*3/uL (1.2-4.9); Mean Corpuscular HGB Conc 32.9 g/dl (31.0-36.0); Mean Corpuscular Hemoglobin 27.9 pg (27.0-33.0); Mean Corpuscular Volume 85.0 fL (80.0-98.0); NRBC Abs Auto 0.000 X10*3/uL (0.0-0.012); NRBC Pct Auto 0.0 /100WBC (0.0-0.2); Platelet Count 221 X10*3/uL (160-400); Red Blood Count 5.05 X10*6/uL (4.60-5.80); White Blood Count 14.7 X10*3/uL (4.8-10.8)
[2025-02-05 19:02] LABS: Alanine Aminotransferase 21 U/L (0-40); Albumin Level 4.7 g/dL (3.5-5.0); Alkaline Phosphatase 64 U/L (39-117); Anion Gap 14 (12-20); Aspartate Amino Transferase 30 U/L (5-37); Blood Urea Nitrogen 10 mg/dL (9-16); Calcium 9.3 mg/dL (8.4-10.2); Carbon Dioxide 25 mmol/L (22-29); Chloride 107 mmol/L (96-108); Creatinine Clr Calc Pharmacy 139.7; Estimated Glomerular Filt Rate > 60; Potassium 3.6 mmol/L (3.3-5.1); Sodium 142 mmol/L (135-145); Total Protein 7.6 g/dL (6.5-8.0)
[2025-02-05 19:15] LABS: COVID-19 Test Negative (Negative); IDNOW Serial# 55D5AD1C
[2025-02-05 19:16] LABS: IDNOW Serial# 58CA691E; Influenza B2 Negative (Negative)
[2025-02-05 19:21] LABS: IDNOW Serial# 08D9AD1C; Strep A Nucleic Acid Positive (Negative)
[2025-02-05 19:30] VITALS: BP 138/93; PULSE 99; RESP 19; TEMP 37.1; O2SAT 97
--- OUTSIDE RECORDS SUMMARY | 2025-02-05 19:31 | XMS_ITS | Data Portability ---
Author Organization [facility], [address] Address [address] [place] [address] Assessment No assessment recorded. Plan of Treatment Reminders Order Date Submit Date Provider Last Modified By Organization Details Last Modified Time Details Appointments None recorded. Lab chlamydia trachomatis + neisseria gonorrhoeae + trichomonas vaginalis DNA panel, LIZZ+probe, urine 2023 [place] [facility] (Centralized Electronic Ordering - All Locations), Patient Can Go To The Location Of Their Choice, [id number] 06:07:50 Referral None recorded. Procedures None recorded. Surgeries None recorded. Imaging None recorded. Medication Orders metronidazo le 500 mg tablet 2023 [place] [id number], [address] [facility], [place], [address], 12:49:43 Patient TargetsNo targets recorded. Patient Instructions Encounter Date Encounter Id Patient Instructions Last Modified By Organization Details Last Modified Time 02/08/2024 [id number] trichomoniasis: care instructions [email or web address] Not available 02/08/2024 12:51:01 Reason for Referral None Reported. Results Created Date Observation Date Name Description Value Unit Range Abnormal Flag Note LastModifiedBy Organization Detail LastModifiedTime 02/08/2002/10/2024 CT/GC /TV LIZZ+M YCOPL ASMAS URINE mycoplasma hominis LIZZ NEGATI VE negati ve Not Available [facility] ([facility]) [address] [facility], [place], [address], 02/11/2024 06:07:50 02/08/2002/10/2024 CT/GC /TV LIZZ+M YCOPL ASMAS URINE ureaplasma spp LIZZ NEGATI VE negati ve Not Available [facility] ([facility]) [address] [place], [address], 02/11/2024 06:07:50 02/08/2002/11/2024 CT/GC /TV LIZZ+M YCOPL ASMAS URINE mycoplasma genitalium LIZZ NEGATI VE negati ve Not Available [facility] ([facility]) [address] [place] [address], [address], 02/11/2024 06:07:50 02/08/2002/11/2024 CT/GC /TV LIZZ+M YCOPL ASMAS URINE trich vag by LIZZ NEGATI VE negati ve Not Available [facility] ([facility]) [address] [place], [address], 02/11/2024 06:07:50 02/08/2002/11/2024 CT/GC /TV LIZZ+M YCOPL ASMAS URINE chlamydia trachomatis, LIZZ NEGATI VE negati ve Not Available [facility] ([facility]) [address] [place] [address], [address], 02/11/2024 06:07:50 02/08/2002/11/2024 CT/GC /TV LIZZ+M YCOPL ASMAS URINE neisseria gonorrhoeae, LIZZ NEGATI VE negati ve Not Available [facility] ([facility]) [address] [place], [address], 02/11/2024 06:07:50 Result Notes None recorded. Problems No Known Problems Medical Equipment None Reported. Allergies Allergen ID Allergen Name Allergen Category Reaction Reaction Severity Criticality Documentation Date Start Date Code Code System Note Provider Name and Address Organization Details Recorded Time 7205977 iodine medicatio n Not available Not available Not available 02/08/2024 5933 RxNorm PÉREZ Henson - [facility] 12:37:17 Medications Name Sig Start Date Stop Date Status Note LastModified by Organization Details LastModified Time metronidazole 500 mg tablet Take 4 tablets every day by oral route for 1 day. 2023 active Not Available Not Available Not Avai lable Vitals Date Recorded Body height Body mass index (BMI) Body weight Oxygen saturation Oxygen saturation in Arterial blood by Pulse oximetry Heart rate Respiratory rate Body temperature Systolic And Diastolic Provider Name and Address Organization Details Last Updated DateTime 170.18 cm 31.3 kg/m2 27622.4 7 g 99 % 99 % 82 /min 18 /min 98.3 [degF] 152/66 mm[Hg] Kathy Eric PA - [facility] 12:44:25 Social History Question Answer Notes LastModified by [employer] Details LastModified Time Tobacco Smoking Status Current Every Day Smoker Kathy Reyes favian [facility] 02/08/2024 12:38:04 Have You Had A Flu Shot This Season? N/A Information not available 02/08/2024 What Is Your Relationship Status? Single Information not available 02/08/2024 Are You Passively Exposed To Smoke? No Information no t available 02/08/2024 Have You Recently Traveled Abroad? No Information not available 02/08/2024 Sex: Unknown Functional Status Question Answer Note LastModified by [employer] Details LastModified Time Do you use any illicit or recreational drugs? No Information not available 02/08/2024 Do you or have you ever used any other forms of tobacco or nicotine? Yes weed Information not available 02/08/2024 What is your level of alcohol consumption? None Information not available 02/08/2024 Are you currently employed? Yes Information not available 02/08/2024 Mental Status None recorded. Family History Relationship Description Onset Age of this Age Resolved Age Notes LastModified by Organization Details LastModified Time Father No current problems or disability Not available 02/07 12:37:50 Mother No current problems or disability Not available 02/07 12:37:51 Medical History No medical history recorded. Past Encounters Encounter ID Performer Location Encounter Start Date Encounter Closed Date Diagnosis/Indication Diagnosis SNOMED-CT Code Diagnosis ICD10 Code Diagnosis IMO Codes Diagnosis Note [id number] [address] [place] [address] 12/02/2021 11:08:51 12/03/2021 09:16:39 [id number] PÉREZ Hummel [address] [facility] [place] [address] 02/08/2024 12:34:38 02/08/2024 12:53:33 Exposure to genital trichomoniasis 941650957 Z20.2 We will call with results of your testing within 1 week. If you do not hear from us, please call us to get your results. S christine you were exposed to trichomona s, you need to complete treatment even if your testing result is negative. I f you test positive, you need to notify all partners from the past 60 days because they will also need to seek care to be treated. A bstain from sex for 7 days after 1-day treatment or after finishing all 7 days of a 7-day treatment, whichever was prescribed . All partners must all have completed their treatment as well before having sex to prevent reinfectio n. R ecommendat ion is to retest in 3 months if you test positive for chlamydia to make sure there is not any reinfectio n. A ll sexually active men and women should receive periodic testing for STD's. The frequency that these tests should be repeated is dependent upon several factors, including the number of sexual partners, use of barrier contracept ion, and other factors. Testing should include screening for Chlamydia, Gonorrhea, Syphilis, and HIV. Additional testing may be required if symptoms of specific STD's are present. If you are sexually active, you should follow up with the Local Health Department for HIV testing and any other testing not performed by [facility] . Partners should be notified and testing should occur as well if concerns exist. U se additional non-hormon al contracept ion as antibiotic s can decrease efficacy of control and lead to unintended . Health Concerns Section Related Observation LastModified by Organization Detai ls LastModified Time None Recorded Concern Status LastModified by Organization Details LastModified Time None Recorded Advance Directives Directive None Recorded Payers Insurance Date Sequence Insurance Name Policy Number Policy Avila Covered Member ID Avila Member ID Guarantor Name 02/08/2024 1 [place] [facility] Saw Bolanos [id number] Saw Luis Miguel Notes Date Note Type Note Provider Name and Address Organization Details Recorded Time 02/08/2024 text/html 38 y/o male here a few days after being told by his partner that she tested positive for trichomonas. He is having some dysuria for the past 3 days PÉREZ Hummel [address] [place], [place] [address], [address], PA - [facility] 02/08/2024 12:51:14
--- OUTSIDE RECORDS SUMMARY | 2025-02-05 19:31 | XMS_ITS | Clinical Summary ---
Author Organization [facility] Address [address] [place] [address] Care Team Providers Care Class 1 Owner Operator Name Role Phone Unavailable Primary Care Provider Unavailabl e Social History Tobacco Use Types Packs/Day Years Used Date Smoking Tobacco: Never Assessed Sex and Gender Information Value Date Recorded Sex Assigned at Not on file Legal Sex Male 5:38 AM EST Gender Identity Not on file Sexual Orientation Not on file Plan of Treatment Health Maintenance Due Date Last Done Comments DTaP,Tdap,and Td Vaccines (1 - Tdap) 2006 Hepatitis B Vaccines (1 of 3 - 19+ 3-dose series) 2006 HPV Vaccines (1 - 3-dose SCD M series) 2014 Depression Screening 04/12/2024 COVID-19 Vaccine (1 - 2023-2 5 season) 2024 Influenza Vaccine (#1) 2024 RSV Immunization Adult Patie nts (1 - 1-dose 75+ series) 2062 HIB Vaccines Aged Out No longer eligi ble based on patient's age to complete this topic Hepatitis A Vaccines Aged Out No long er eligible based on patient's age to complete this topic IPV Vaccines Aged Out No longer eligi ble based on patient's age to complete this topic MMR Vaccines Aged Out No longer eligi ble based on patient's age to complete this topic Meningococcal ACWY Vaccine Aged Out N o longer eligible based on patient's age to complete this topic Meningococcal B Vaccine Aged Out No l onger eligible based on patient's age to complete this topic Pneumococcal Vaccine: Pediat rics (0 to 5 Years) and At-Risk Patients (6 to 49 Years) Aged Out No longer eligible b ased on patient's age to complete this topic RSV Immunization Patients Un oksana 20 months Aged Out No longer eligible b ased on patient's age to complete this topic Varicella Vaccines Aged Out No longer eligible based on patient's age to complete this topic
[2025-02-05 20:02] VITALS: BP 138/95; PULSE 105; RESP 17; TEMP 37.1; O2SAT 97
--- NOTE | 2025-02-05 21:09 | PHA.MEDREC ---
Addendum entered by Dante Finney PharmD 02/05/25 21:11: reviewed Original Note: Pharmacy Consult ? Medication Reconciliation Pharmacy has completed the medication reconciliation. Patient states he is not on any medications.
--- NOTE | 2025-02-05 21:16 | P.HPHOSP_ITS ---
History of Present Illness Date of Service: 02/05/25 Attending physician on admission: Eve Tirado Chief Complaint: Sore throat Saw Bolanos is a 39 years old man with no significant past medical history presents to the emergency department complaining of 3 days' history of worsening sore throat associated with the swallowing difficulty solids and liquids. He also reported low-grade fever and nonproductive cough. Denied drooling, chest pain, shortness of breath, palpitations or dizziness. He reported some heartburn that he attributes to ibuprofen and Tylenol which he has been taking to improve his symptoms. He did not report any nausea, vomiting or diarrhea. He is a tobacco smoker 1 pack per day and smoked marijuana at times. Denied illicit drug use or alcohol abuse. In the ED, he was found to have stable vital signs, however there is mild tachycardia. There is leukocytosis of 14.7 hemoglobin and platelets are 221. There is neutrophilia. There are no electrolyte imbalances. Renal function and LFTs are normal. There is no lactic acidosis. CRP is 5.72. Throat culture is positive for Streptococcus pyogenes. Neck soft tissue CT showed no abscess or inflammatory changes in the neck. There is mild symmetric prominent soft tissue in the nasopharyngeal may represent lymphoid hyperplasia, epiglottis measure 5 mm in thickness which is at the upper limit of normal. ED tx: Ceftriaxone 1 g IV, dexamethasone 5 mg IV, Tylenol 975 mg p.o., NS 1 L bolus Review of Systems 2 Review of Systems: All 12 systems were reviewed and normal except as noted in HPI. [facility] Social History Alcohol intake: never Smoked in Last 30 Days: Yes Use of substances other than those prescribed or required for medical reasons: Yes Substance Use Type: Marijuana Advance Directives: No Advance Directives Information Provided: No Meds Allergies Allergy/AdvReac Type Severity Reaction Status Date / Time iodine (IODINE) Allergy Severe Anaphylaxis Verified 02/05/25 18:19 seafood Allergy Severe Anaphylaxis Verified 02/05/25 18:19 Active Medications: Current Medications Acetaminophen (Acetaminophen 325 Mg Tablet) 975 mg PO Q6H PRN PRN Reason: Pain, Mild 1-3,fever,headache Calcium Carbonate (Calcium Carbonate 750 Mg Tab.Chew) 750 mg PO Q4H PRN PRN Reason: Heartburn Ampicillin Sodium/Sulbactam (Sodium 3 gm/ Sodium Chloride) 100 mls @ 200 mls/hr IV Q6H MAGGY Magnesium Hydroxide (Milk Of Magnesia 30 Ml Oral.Susp) 30 ml PO DAILY PRN PRN Reason: Constipation Melatonin (Melatonin 3 Mg Tablet) 6 mg PO BEDTIME PRN PRN Reason: Insomnia Sodium Chloride (0.9 % Sodium Chloride Flush 3 Ml Syringe) 3 ml IVFLUSH QSHIFT MAGGY Home Medications ?Medication ?Instructions ?Recorded ?Confirmed ?Last Taken ?Type No Known Home Meds 02/05/25 02/05/25 Un known History Physical Exam 2 Vital Signs and Narrative: Vital Signs: Last Vital Signs Temp 98.7 F 02/05/25 20:02 Pulse 105 H 02/05/25 20:02 Resp 17 02/05/25 20:02 BP 138/95 H 02/05/25 20:02 Pulse Ox 97 02/05/25 20:02 O2 Del Method Room Air 02/05/25 20:02 BMI result Body Mass Index 30.7 General: Alert, oriented, in no acute distress. Well nourished and cooperative. Afebrile. HEENT: Head normocephalic, atraumatic. PER, EOMI. Sclerae anicteric, conjunctiva clear. Oropharynx: Normal. No trismus. Mucous membranes moist. Neck: Supple. Heart: RRR, no murmurs, rubs or gallops. Lungs: Clear to auscultation bilaterally. No wheezes, rales, or rhonchi. Normal respiratory effort. Abdomen: Soft, non tenderness, nondistended, normoactive bowel sounds. No hepatosplenomegaly, masses or masses. Extremities: No calf tenderness bilaterally, no swelling Musculoskeletal: Full range of motion. No joint swelling, deformity, or tenderness. Normal muscle tone and strength. Skin: Warm/Dry. No pallor. No jaundice. Neurologic: Alert & oriented x4. Moving all extremities spontaneously. Normal speech. Psychological: Normal mood and affect. Thought process coherent. Results Labs 02/05/25 18:37 02/05/25 18:37 Labs: Laboratory Results - last 24 hr 02/05/25 02/05/25 18:37 19:22 MCV 85.0 MCH 27.9 MCHC 32.9 RDW 12.6 Plt Count 221 MPV 9.4 Immature Gran % (Auto) 0.5 H Neut % (Auto) 73.9 H Lymph % (Auto) 16.1 L [place] % (Auto) 8.8 Eos % (Auto) 0.5 Baso % (Auto) 0.2 Lymph # (Auto) 2.4 [place] # (Auto) 1.3 H Eos # (Auto) 0.1 Baso # (Auto) 0.0 Abs Immat Gran (auto) 0.08 H Absolute Neuts (auto) 10.9 H Absolute Nucleated RBC 0.000 Nucleated RBC % (auto) 0.0 ESR 24 H Anion Gap 14 Estim Creat Clear Calc 139.7 Estimated GFR > 60 Random Glucose 106 Lactic Acid 0.9 Calcium 9.3 Total Bilirubin 0.8 AST 30 ALT 21 Alkaline Phosphatase 64 C-Reactive Protein 5.72 H Total Protein 7.6 Albumin 4.7 Hold Red Top See Note COVID-19 (LIZZ) Negative COVID-19 Clin Com See Note Monoscreen Negative Influenza Type A (ABDI) Negative Influenza Type B (ABDI) Negative Influenza A & B Note See Note S. pyogenes GrpA ABDI Positive A Assessment and Plan (1) Acute streptococcal pharyngitis: Status: Acute (2) Sepsis: Qualifiers: Sepsis acute organ dysfunction status: without acute organ dysfunction Sepsis type: sepsis due to unspecified organism Qualified Code(s): A41.9 - Sepsis, unspecified organism Status: Acute (3) Tobacco dependence: Status: Acute Plan Saw Bolanos is a 39 y/o man who presents with: Sepsis secondary to severe pharyngitis causing swallowing difficulty secondary to S. pyogenes, improving. Close monitoring of symptoms and VS. Telemetry. Pulse oximetry. Antibiotic therapy with Unasyn and anti-inflammatory therapy with Decadron 10 mg IV twice daily. Tobacco dependence. Tobacco cessation education. Nicotine patch as needed. Code status: Full DVT prophylaxis: SCDs, early ambulation Patient will need hospitalization for at least 2 midnights for severe pharyngitis and sepsis treatment with IV antibiotics and anti-inflammatory therapy, patient will need close observation of symptoms. Quality Stroke Does the patient have a stroke diagnosis?: No VTE Prior VTE?: No VTE Risk Level:: Medical - moderate - high VTE Device Contraindication: N/A - Device Ordered VTE Drug Contraindication: Treatment Not Indicated
--- NOTE | 2025-02-05 23:41 | HO.NURTONUR ---
Pt from home with complaint of throat pain/swelling and difficulty swallowing x 2 days. Pt reports unable to tolerate anything by mouth for the past two days, and increased pain when trying to speak. Pt denies any fever/chills or any other symptoms of concern. Pts airway patent and whispering when speaking due to pain. Labs in the ED revealed WBC 14.7 and postive strep. Pt has 20G IV in RAC and has been medicated per jun. Pt received 975mg of tylenol PO which pt stated was effective. Pt is a&ox4, able to make his needs known and ambulates with steady gait. Pt is no longer whispering and speaking in full clear sentences.
[2025-02-06] VITALS (7 sets, daily range): BP systolic 126–159; BP diastolic 81–97; PULSE 94–109; RESP 16–20; TEMP 36.6–37.1; O2SAT 96–97; BMI 30.7
[2025-02-06] MEDS: Nicotine 21 MG PATCH.TD24 TRANSDERMA ×3 (01:07→23:28)
[2025-02-06 06:25] LABS: Anion Gap 11 (12-20); Blood Urea Nitrogen 9 mg/dL (9-16); Calcium 9.0 mg/dL (8.4-10.2); Carbon Dioxide 22 mmol/L (22-29); Chloride 109 mmol/L (96-108); Creatinine Clr Calc Pharmacy 173.7; Estimated Glomerular Filt Rate > 60; Potassium 4.1 mmol/L (3.3-5.1); Sodium 138 mmol/L (135-145)
[2025-02-06 06:29] LABS: Hematocrit 40.2 % (42.0-52.0); Hemoglobin 13.3 g/dl (14.0-18.0); Imm Gran Abs Auto 0.11 X10*3/uL (0.00-0.03); Imm Gran Pct Auto 0.7 % (0.0-0.4); Lymphocytes Absolute Auto 0.9 X10*3/uL (1.2-4.9); MANUAL DIFF FLAG SCAN; Mean Corpuscular HGB Conc 33.1 g/dl (31.0-36.0); Mean Corpuscular Hemoglobin 27.8 pg (27.0-33.0); Mean Corpuscular Volume 83.9 fL (80.0-98.0); NRBC Abs Auto 0.000 X10*3/uL (0.0-0.012); NRBC Pct Auto 0.0 /100WBC (0.0-0.2); Platelet Count 204 X10*3/uL (160-400); Red Blood Count 4.79 X10*6/uL (4.60-5.80); SCAN SMEAR FLAG 1; White Blood Count 15.9 X10*3/uL (4.8-10.8)
[2025-02-06] MEDS: 0.9 % Sodium Chloride Flush 3 ML SYRINGE IVFLUSH ×3 (08:07→21:10)
--- NOTE | 2025-02-06 14:44 | MHC.CM.PN ---
THIS CM MET WITH PATIENT, HE STATES IS SELF-CARE, AND HE LIVES AT HOME WITH HIS EX- AND 2 DAUGHTERS. PATIENT WILL ARRANGE HIS OWN TRANSPORT HOME AT DISCHARGE. NEW HCP COMPLETED WITH PATIENT, NOW ON FILE. PATIENT DOESN'T HAVE A PCP, LOCAL LIST OF PCP'S GIVEN TO PATIENT.
--- NOTE | 2025-02-06 15:19 | P.PNIM_ITS ---
Subjective Subjective Date of Service: 02/06/25 Interval History: Notes improvement overnight secondary to therapies. Controlling secretions Review of Systems Denies chest pain Denies shortness of breath Denies nausea vomiting diarrhea Denies fever chills Physical Exam 2 Vital Signs: Vital Signs: Last Vital Signs Temp 97.9 F 02/06/25 12:00 Pulse 109 H 02/06/25 12:00 Resp 20 02/06/25 12:00 BP 144/83 H 02/06/25 12:00 Pulse Ox 97 02/06/25 12:00 O2 Del Method Room Air 02/06/25 12:00 BMI result Body Mass Index 30.7 Const: Other: Awake alert oriented x3 in no acute distress HEENT: Other: Tonsils 2+ with white exudate posterior pharynx Resp: Other: Clear to auscultation bilaterally no rales rhonchi or wheezes. No stridor Cardio: Other: No S4; positive S1-S2; no S3 murmurs rubs or gallops GI: Other: Soft nontender nondistended normoactive bowel sounds Extrem: Other: No edema bilaterally Objective Data Active Medications Acetaminophen (Acetaminophen 325 Mg Tablet) 975 mg PO Q6H PRN PRN Reason: Pain, Mild 1-3,fever,headache Last Admin: 02/06/25 08:13 Dose: 975 mg Documented By: BESSIE Calcium Carbonate (Calcium Carbonate 750 Mg Tab.Chew) 750 mg PO Q4H PRN PRN Reason: Heartburn Dexamethasone Sodium Phosphate (Dexamethasone Sod Phosphate 10 Mg/Ml Vial) 10 mg IVPUSH BID [facility] Last Admin: 02/06/25 08:07 Dose: 10 mg Documented By: BESSIE Ampicillin Sodium/Sulbactam (Sodium 3 gm/ Sodium Chloride) 100 mls @ 200 mls/hr IV Q6H [facility] Last Infusion: 02/06/25 08:52 Dose: Infused Documented By: BESSIE Magnesium Hydroxide (Milk Of Magnesia 30 Ml Oral.Susp) 30 ml PO DAILY PRN PRN Reason: Constipation Melatonin (Melatonin 3 Mg Tablet) 6 mg PO BEDTIME PRN PRN Reason: Insomnia Nicotine (Nicotine 21 Mg Patch.Td24) 21 mg TRANSDERMA DAILY [facility] Last Admin: 02/06/25 08:49 Dose: 21 mg Documented By: BESSIE Sodium Chloride (0.9 % Sodium Chloride Flush 3 Ml Syringe) 3 ml IVFLUSH QSHIFT [facility] Last Admin: 02/06/25 08:07 Dose: 3 ml Documented By: BESSIE Labs 02/06/25 05:40 02/06/25 05:40 Labs: Laboratory Results - last 24 hr 02/05/25 02/05/25 02/06/25 18:37 19:22 05:40 MCV 85.0 83.9 MCH 27.9 27.8 MCHC 32.9 33.1 RDW 12.6 12.6 Plt Count 221 204 MPV 9.4 10.4 Immature Gran % (Auto) 0.5 H 0.7 H Neut % (Auto) 73.9 H 90.8 H Lymph % (Auto) 16.1 L 5.8 L [place] % (Auto) 8.8 2.5 Eos % (Auto) 0.5 0.1 Baso % (Auto) 0.2 0.1 Lymph # (Auto) 2.4 0.9 L [place] # (Auto) 1.3 H 0.4 Eos # (Auto) 0.1 0.0 Baso # (Auto) 0.0 0.0 Abs Immat Gran (auto) 0.08 H 0.11 H Absolute Neuts (auto) 10.9 H 14.4 H Absolute Nucleated RBC 0.000 0.000 Nucleated RBC % (auto) 0.0 0.0 Smear Tech's Comments VERIFIED ESR 24 H Anion Gap 14 11 L Estim Creat Clear Calc 139.7 173.7 Estimated GFR > 60 > 60 Random Glucose 106 191 H Lactic Acid 0.9 Calcium 9.3 9.0 Total Bilirubin 0.8 AST 30 ALT 21 Alkaline Phosphatase 64 C-Reactive Protein 5.72 H Total Protein 7.6 Albumin 4.7 Hold Red Top See Note COVID-19 (LIZZ) Negative COVID-19 Clin Com See Note Monoscreen Negative Influenza Type A (ABDI) Negative Influenza Type B (ABDI) Negative Influenza A & B Note See Note S. pyogenes GrpA ABDI Positive A Assessment and Plan (1) Acute streptococcal pharyngitis: Status: Acute (2) Sepsis: Status: Acute Plan Saw Bolanos is a 39 y/o man who presents with: 1.Sepsis secondary to severe pharyngitis (sepsis resolved) -Unasyn (2) -IV Decadron b.i.d. Code status: Full DVT prophylaxis: SCDs, early ambulation Patient requires ongoing hospitalization for IV antibiotics and steroids to treat acute pharyngitis causing sepsis Quality Stroke Does the patient have a stroke diagnosis?: No VTE Prior VTE?: No VTE Risk Level:: Medical - moderate - high VTE Device Contraindication: N/A - Device Ordered VTE Drug Contraindication: Treatment Not Indicated
[2025-02-06] MEDS: oxyCODONE HCl Immed Release 5 MG TABLET 10 MG PO (21:10)
[2025-02-07 02:57] VITALS: BP 120/69; PULSE 86; RESP 18; TEMP 36.3; O2SAT 96
[2025-02-07 07:09] VITALS: BP 134/90; PULSE 93; RESP 18; TEMP 37.1; O2SAT 98
[2025-02-07 07:24] LABS: MANUAL DIFF FLAG NO
[2025-02-07 07:29] LABS: Hematocrit 41.6 % (42.0-52.0); Hemoglobin 13.8 g/dl (14.0-18.0); Imm Gran Abs Auto 0.18 X10*3/uL (0.00-0.03); Imm Gran Pct Auto 1.0 % (0.0-0.4); Lymphocytes Absolute Auto 1.4 X10*3/uL (1.2-4.9); Mean Corpuscular HGB Conc 33.2 g/dl (31.0-36.0); Mean Corpuscular Hemoglobin 28.1 pg (27.0-33.0); Mean Corpuscular Volume 84.7 fL (80.0-98.0); NRBC Abs Auto 0.000 X10*3/uL (0.0-0.012); NRBC Pct Auto 0.0 /100WBC (0.0-0.2); Platelet Count 265 X10*3/uL (160-400); Red Blood Count 4.91 X10*6/uL (4.60-5.80); White Blood Count 17.9 X10*3/uL (4.8-10.8)
[2025-02-07 07:45] LABS: Alanine Aminotransferase 21 U/L (0-40); Albumin Level 4.6 g/dL (3.5-5.0); Alkaline Phosphatase 66 U/L (39-117); Anion Gap 13 (12-20); Aspartate Amino Transferase 25 U/L (5-37); Blood Urea Nitrogen 14 mg/dL (9-16); Calcium 9.5 mg/dL (8.4-10.2); Carbon Dioxide 25 mmol/L (22-29); Chloride 106 mmol/L (96-108); Creatinine Clr Calc Pharmacy 159.2; Estimated Glomerular Filt Rate > 60; Potassium 4.2 mmol/L (3.3-5.1); Sodium 140 mmol/L (135-145); Total Protein 7.7 g/dL (6.5-8.0)
[2025-02-07] MEDS: Nicotine 21 MG PATCH.TD24 TRANSDERMA (07:53)
[2025-02-07] MEDS: 0.9 % Sodium Chloride Flush 3 ML SYRINGE IVFLUSH (07:54)
[2025-02-07] MEDS: oxyCODONE HCl Immed Release 5 MG TABLET 10 MG PO (08:00)
--- NOTE | 2025-02-07 13:31 | P.DS_ITS ---
DS: Providers Provider Date of Service: 02/07/25 Date of admission: 02/05/25 20:54 Date of discharge: 02/07/25 Primary care physician: Ramya Physician DS: Diagnosis Discharge Diagnosis (1) Acute streptococcal pharyngitis: Status: Acute (2) Sepsis: Status: Acute DS: Summary Hospital Course Hospital Course: 39 years old man with no significant past medical history presents to the emergency department complaining of 3 days' history of worsening sore throat associated with the swallowing difficulty solids and liquids. He also reported low-grade fever and nonproductive cough. Denied drooling, chest pain, shortness of breath, palpitations or dizziness. He reported some heartburn that he attributes to ibuprofen and Tylenol which he has been taking to improve his symptoms. He did not report any nausea, vomiting or diarrhea. He is a tobacco smoker 1 pack per day and smoked marijuana at times. Denied illicit drug use or alcohol abuse. In the ED, he was found to have stable vital signs, however there is mild tachycardia. There is leukocytosis of 14.7 hemoglobin and platelets are 221. There is neutrophilia. There are no electrolyte imbalances. Renal function and LFTs are normal. There is no lactic acidosis. CRP is 5.72. Throat culture is positive for Streptococcus pyogenes. Neck soft tissue CT showed no abscess or inflammatory changes in the neck. There is mild symmetric prominent soft tissue in the nasopharyngeal may represent lymphoid hyperplasia, epiglottis measure 5 mm in thickness which is at the upper limit of normal. Hospital course Patient admitted to telemetry where monitor failed to demonstrate any acute dysrhythmias. At no point in time during this admission was unable to handle his secretions. He was started on ceftriaxone initially in the ER but switch to Unasyn upon admission. He was also given IV Decadron 10 mg b.i.d.. Over the next 48 hours his posterior pharynx shows marked improvement and he has been afebrile. At this time he is tolerating full diet and wishes discharge. He is medically acceptable for same Time Attestation Discharge Coordination Time (in mins): 35 Quality: Safe Use of Opioids Does Pt have an Active Cancer Diagnosis on the Problem List?: No Quality: Stroke Does the patient have a stroke diagnosis?: No Physical Exam Vital Signs: Vital Signs: Last Vital Signs Temp 98.7 F 02/07/25 07:09 Pulse 93 02/07/25 07:09 Resp 18 02/07/25 07:09 BP 134/90 H 02/07/25 07:09 Pulse Ox 98 02/07/25 07:09 O2 Del Method Room Air 02/07/25 07:09 BMI result Body Mass Index 30.7 Const: Other: Awake alert oriented x3 in no acute distress HEENT: Other: Tonsils 2+ with white exudate posterior pharynx Resp: Other: Clear to auscultation bilaterally no rales rhonchi or wheezes. No stridor Cardio: Other: No S4; positive S1-S2; no S3 murmurs rubs or gallops GI: Other: Soft nontender nondistended normoactive bowel sounds Extrem: Other: No edema bilaterally DS: Data Data Completed and Pending Labs on day of discharge: Laboratory Results - last 24 hr 02/07/25 07:01 WBC 17.9 H RBC 4.91 Hgb 13.8 L Hct 41.6 L MCV 84.7 MCH 28.1 MCHC 33.2 RDW 12.8 Plt Count 265 D MPV 9.8 Immature Gran % (Auto) 1.0 H Neut % (Auto) 86.1 H Lymph % (Auto) 7.5 L Burnet % (Auto) 5.3 Eos % (Auto) 0.0 Baso % (Auto) 0.1 Lymph # (Auto) 1.4 Burnet # (Auto) 0.9 Eos # (Auto) 0.0 Baso # (Auto) 0.0 Abs Immat Gran (auto) 0.18 H Absolute Neuts (auto) 15.4 H Absolute Nucleated RBC 0.000 Nucleated RBC % (auto) 0.0 Sodium 140 Potassium 4.2 Chloride 106 Carbon Dioxide 25 Anion Gap 13 BUN 14 Creatinine 0.72 Estim Creat Clear Calc 159.2 Estimated GFR > 60 Fasting Glucose 155 H Calcium 9.5 Total Bilirubin 0.4 AST 25 ALT 21 Alkaline Phosphatase 66 Total Protein 7.7 Albumin 4.6 Preliminary micro results at discharge 02/05/25 19:22 Blood Culture - Preliminary Blood - Venous No growth after 24 hours. 02/05/25 19:22 Blood Culture - Preliminary Blood - Venous No growth after 24 hours. Discharge Plan Discharge Anticipated Discharge Date/Time: 02/07/25 13:16 Patient Disposition: Home, Self-Care Discharge Diagnosis: Acute streptococcal pharyngitis Referrals: Physician,None [Primary Care Provider, Medical] - 1 Week Discharge Medications: New amoxicillin-pot clavulanate 875-125 mg tablet 1 tab PO BID Qty: 20 0RF dexamethasone 4 mg tablet See Rx Instructions .ROUTE .COMPLEX Qty: 18 0RF Rx Instructions: 4 mg orally 1 tab p.o. t.i.d. for 3 days; 1 tab p.o. b.i.d. x3 days; 1 tab daily for 3 days oxycodone 10 mg tablet 10 mg PO Q6H PRN (Reason: pain) Qty: 20 0RF Rx Instructions: Partial Fill upon patient request. Discharge Orders: Discharge Order (Routine); Ordered 02/07/25 Ordered By: Silas Banegas Diet: Advance to usual diet Activity on Discharge: As tolerated Stand Alone Forms: Patient Portal Discharge page Print Language: Ukrainian Care Plan Goals: Complete course of Augmentin as outlined as well as Decadron taper. Oxycodone for pain Health Concerns: You need to arrange a PCP and begin to see on a regular basis Plan of Treatment: Return if symptoms worsen Assessment: See discharge summary
--- NOTE | 2025-02-07 13:46 | MHC.CM.PN ---
PATIENT IS MEDICALLY CLEARED FOR DISCHARGE HOME SELF-CARE, HE HAS ARRANGED HIS OWN TRANSPORT HOME TODAY.
== END 2025-02-07 15:48 | disposition home or self-care (01) | DRG 872 ==
LOC: HO.ED 20:32 → HO.EDOVER 20:59 → HO.IMC 23:36
PROVIDERS: Physician Assistant Medical; Admitting Provider Internal Medicine; Emergency Provider Student in an Organized Health Care Education/Training Program; Visit Provider Hospitalist
DX: A40.0 Sepsis due to streptococcus, group A (principal); J02.0 Streptococcal pharyngitis; F17.210 Nicotine dependence, cigarettes, uncomplicated; Z71.6 Tobacco abuse counseling; Z20.822 Contact with and (suspected) exposure to COVID-19
CPT/HCPCS: 36415; 70491; 80048; 80053; 83605; 85025; 85652; 86140; 86308; 87040; 87502; 87635; 87651; 99285; J0295; J0696; J1100; Q9967

== ENCOUNTER → 2025-02-05 18:17 | Outpatient (BNV) | payer MEDICAID, SELFPAY | PROVIDERS: Emergency Provider Student in an Organized Health Care Education/Training Program; Visit Provider Specialist | DX: R22.1 Localized swelling, mass and lump, neck (principal) | CPT/HCPCS: 70491 ==

== ENCOUNTER → 2025-02-05 20:54 | Outpatient (BNV) | payer SELFPAY | PROVIDERS: Admitting Provider Internal Medicine; Emergency Provider Student in an Organized Health Care Education/Training Program; Visit Provider Internal Medicine | DX: A41.9 Sepsis, unspecified organism (principal); J02.0 Streptococcal pharyngitis | CPT/HCPCS: 99239 ==